=== PATIENT | female | born 1945 | race Caucasian/White ===

== ENCOUNTER 2018-07-31 18:03 | Emergency (ER) | payer MEDICARE, BC ==
[2018-07-31 18:20] VITALS: RESP 18
--- NOTE | 2018-07-31 19:22 | ED ---
General Adult HPI - General Chief complaint: Recheck/Abnormal Lab/Rx Stated complaint: FLANK PAIN, R/O PE Time Seen by Provider: 07/31/18 18:08 Source: patient, EMS, RN notes reviewed, old records reviewed Mode of arrival: EMS Limitations: no limitations - History of Present Illness Initial comments: This is a 73-year-old female the ER today. Patient does say for evaluation regarding possible PE. Patient states flank pain or shortness of breath. She has history of DVT and PE, history of multiple bariatric surgery. Patient is recent travel history no recent sick contacts no recent surgeries. Patient's not currently on any anticoagulation. Patient is accepted for evaluation regarding possibility of PE. Patient currently denying chest pain or shortness of breath did have flank pain left-sided flank pain. Patient states pain right now is currently controlled she has no complaints - Related Data Home Medications Medication Instructions Recorded Confirmed Calcium Carbonate [Calcium] 1,800 mg PO DAILY 05/13/16 07/31/18 Cholecalciferol [Vitamin D3] 5,000 unit PO DAILY 05/13/16 07/31/18 Loratadine-Pseudoeph 10-240 mg 1 tab PO DAILY 05/13/16 07/31/18 [Claritin-D 24 Hour] Montelukast [Singulair] 10 mg PO DAILY 05/13/16 07/31/18 Multivitamins, Thera [Multivitamin 2 tab PO DAILY 05/13/16 07/31/18 (formulary)] Estrogens, Conjugated [Premarin] 0.3 mg PO DAILY 07/31/18 07/31/18 Allergies Allergy/AdvReac Type Severity Reaction Status Date / Time diphenhydramine AdvReac ANXIETY Verified 07/31/18 18:27 [From Benadryl] Review of Systems ROS Statement: Those systems with pertinent positive or pertinent negative responses have been documented in the HPI. ROS Other: All systems not noted in ROS Statement are negative. Past Medical History Past Medical History: Deep Vein Thrombosis (DVT), Pulmonary Embolus (PE) Additional Past Medical History / Comment(s): cataracts bilaterally, R thumb fx as a child. History of Any Multi-Drug Resistant Organisms: None Reported Past Surgical History: Bariatric Surgery, Breast Surgery, Cholecystectomy, Heart Catheterization, Hysterectomy Additional Past Surgical History / Comment(s): 2008 normal heart cath, reconstructive maxilla bone graft from R iliac crest and 11 dental implants, gastric stapling, bilateral breast reduction, 2012 colonoscopy-normal. Past Anesthesia/Blood Transfusion Reactions: Motion Sickness Additional Past Anesthesia/Blood Transfusion Reaction / Comment(s): Pt has severe motion sickness. Past Psychological History: No Psychological Hx Reported Smoking Status: Former smoker Past Alcohol Use History: None Reported Past Drug Use History: None Reported - Past Family History Father Family Medical History: Diabetes Mellitus Mother Family Medical History: Diabetes Mellitus Sister(s) Family Medical History: Diabetes Mellitus Brother(s) Family Medical History: Diabetes Mellitus General Exam Limitations: no limitations General appearance: alert, in no apparent distress Head exam: Present: atraumatic, normocephalic, normal inspection Eye exam: Present: normal appearance, PERRL, EOMI. Absent: scleral icterus, conjunctival injection, periorbital swelling ENT exam: Present: normal exam, mucous membranes moist Neck exam: Present: normal inspection. Absent: tenderness, meningismus, lymphadenopathy Respiratory exam: Present: normal lung sounds bilaterally. Absent: respiratory distress, wheezes, rales, rhonchi, stridor Cardiovascular Exam: Present: regular rate, normal rhythm, normal heart sounds. Absent: systolic murmur, diastolic murmur, rubs, gallop, clicks GI/Abdominal exam: Present: soft, normal bowel sounds. Absent: distended, tenderness, guarding, rebound, rigid Extremities exam: Present: normal inspection, full ROM, normal capillary refill. Absent: tenderness, pedal edema, joint swelling, calf tenderness Back exam: Present: normal inspection Neurological exam: Present: alert, oriented X3, CN II-XII intact Psychiatric exam: Present: normal affect, normal mood Skin exam: Present: warm, dry, intact, normal color. Absent: rash Course Vital Signs 07/31/18 07/31/18 07/31/18 18:10 20:27 22:43 Temperature 97.1 F L 98.6 F Pulse Rate 75 77 77 Respiratory 18 18 18 Rate Blood Pressure 125/59 125/64 140/63 O2 Sat by Pulse 99 98 97 Oximetry - Reevaluation(s) Reevaluation #1: 07/31/18 20:29 Medical record transfer paperwork is reviewed EKG Findings - EKG Comments: EKG Findings:: EKG shows sinus rhythm rate of 69, MA 156, QRS 86, QTc 437 Medical Decision Making - Medical Decision Making 73 female the ER for evaluation of possibility of PE, ultrasound and CT are obtained which show no PE no DVT - Lab Data Result diagrams: 07/31/18 20:22 07/31/18 20:22 Lab Results 07/31/18 07/31/18 07/31/18 Range/Units 20:22 20:22 20:22 WBC 7.1 (3.8-10.6) k/uL RBC 4.65 (3.80-5.40) m/uL Hgb 12.9 (11.4-16.0) gm/dL Hct 40.9 (34.0-46.0) % MCV 87.8 (80.0-100.0) fL MCH 27.7 (25.0-35.0) pg MCHC 31.6 (31.0-37.0) g/dL RDW 15.2 (11.5-15.5) % Plt Count 190 (150-450) k/uL Neutrophils % 73 % Lymphocytes % 20 % Monocytes % 5 % Eosinophils % 1 % Basophils % 0 % Neutrophils # 5.2 (1.3-7.7) k/uL Lymphocytes # 1.4 (1.0-4.8) k/uL Monocytes # 0.3 (0-1.0) k/uL Eosinophils # 0.1 (0-0.7) k/uL Basophils # 0.0 (0-0.2) k/uL Hypochromasia Slight PT (9.0-12.0) sec INR (<1.2) APTT (22.0-30.0) sec D-Dimer (<0.60) mg/L FEU Sodium 137 (137-145) mmol/L Potassium 3.9 (3.5-5.1) mmol/L Chloride 104 (98-107) mmol/L Carbon Dioxide 28 (22-30) mmol/L Anion Gap 5 mmol/L BUN 16 (7-17) mg/dL Creatinine 0.53 (0.52-1.04) mg/dL Est GFR (CKD-EPI)AfAm >90 (>60 ml/min/1.73 sqM) Est GFR (CKD-EPI)NonAf >90 (>60 ml/min/1.73 sqM) Glucose 95 (74-99) mg/dL Calcium 8.3 L (8.4-10.2) mg/dL Phosphorus 5.1 H (2.5-4.5) mg/dL Magnesium 1.9 (1.6-2.3) mg/dL Total Bilirubin 0.9 (0.2-1.3) mg/dL AST 39 H (14-36) U/L ALT 49 (9-52) U/L Alkaline Phosphatase 155 H (38-126) U/L Total Creatine Kinase <20 L (30-135) U/L CK-MB (CK-2) 0.6 (0.0-2.4) ng/mL CK-MB (CK-2) Rel Index Troponin I <0.012 (0.000-0.034) ng/mL Total Protein 6.1 L (6.3-8.2) g/dL Albumin 3.4 L (3.5-5.0) g/dL 07/31/18 Range/Units 20:22 WBC (3.8-10.6) k/uL RBC (3.80-5.40) m/uL Hgb (11.4-16.0) gm/dL Hct (34.0-46.0) % MCV (80.0-100.0) fL MCH (25.0-35.0) pg MCHC (31.0-37.0) g/dL RDW (11.5-15.5) % Plt Count (150-450) k/uL Neutrophils % % Lymphocytes % % Monocytes % % Eosinophils % % Basophils % % Neutrophils # (1.3-7.7) k/uL Lymphocytes # (1.0-4.8) k/uL Monocytes # (0-1.0) k/uL Eosinophils # (0-0.7) k/uL Basophils # (0-0.2) k/uL Hypochromasia PT 9.9 (9.0-12.0) sec INR 1.0 (<1.2) APTT 25.0 (22.0-30.0) sec D-Dimer 1.84 H (<0.60) mg/L FEU Sodium (137-145) mmol/L Potassium (3.5-5.1) mmol/L Chloride (98-107) mmol/L Carbon Dioxide (22-30) mmol/L Anion Gap mmol/L BUN (7-17) mg/dL Creatinine (0.52-1.04) mg/dL Est GFR (CKD-EPI)AfAm (>60 ml/min/1.73 sqM) Est GFR (CKD-EPI)NonAf (>60 ml/min/1.73 sqM) Glucose (74-99) mg/dL Calcium (8.4-10.2) mg/dL Phosphorus (2.5-4.5) mg/dL Magnesium (1.6-2.3) mg/dL Total Bilirubin (0.2-1.3) mg/dL AST (14-36) U/L ALT (9-52) U/L Alkaline Phosphatase (38-126) U/L Total Creatine Kinase (30-135) U/L CK-MB (CK-2) (0.0-2.4) ng/mL CK-MB (CK-2) Rel Index Troponin I (0.000-0.034) ng/mL Total Protein (6.3-8.2) g/dL Albumin (3.5-5.0) g/dL Disposition Clinical Impression: Flank pain Disposition: HOME SELF-CARE Condition: Good Instructions: Flank Pain (ED) Is patient prescribed a controlled substance at d/c from ED?: No Referrals: Art Gusman MD [Primary Care Provider] - 1-2 days
[2018-07-31] MEDS ORDERED: SODIUM CHLORIDE 0.9% 1,000 ML IV STA ×3 (19:59→22:05)
[2018-07-31] MEDS ORDERED: MORPHINE SULFATE 4 MG/ML SYRINGE IV STA (19:59)
[2018-07-31 20:28] VITALS: PULSE 77
[2018-07-31 20:45] LABS: Basophils % (A) 0 %; Eosinophils # (A) 0.1 k/uL (0-0.7); Eosinophils % (A) 1 %; HCT 40.9 % (34.0-46.0); HGB 12.9 gm/dL (11.4-16.0); Hypochromasia Slight; Lymphocytes # (A) 1.4 k/uL (1.0-4.8); Lymphocytes % (A) 20 %; MCH 27.7 pg (25.0-35.0); MCHC 31.6 g/dL (31.0-37.0); MCV 87.8 fL (80.0-100.0); Mean Platelet Volume 6.9; Monocytes # (A) 0.3 k/uL (0-1.0); Monocytes % (A) 5 %; Neutrophils # (A) 5.2 k/uL (1.3-7.7); Neutrophils % (A) 73 %; Platelet Count 190 k/uL (150-450); RBC 4.65 m/uL (3.80-5.40); RDW 15.2 % (11.5-15.5); WBC 7.1 k/uL (3.8-10.6)
[2018-07-31 20:57] LABS: ALT 49 U/L (9-52); AST 39 U/L (14-36); Albumin 3.4 g/dL (3.5-5.0); Alkaline Phosphatase 155 U/L (38-126); Anion Gap 5 mmol/L; Blood Urea Nitrogen 16 mg/dL (7-17); Calcium 8.3 mg/dL (8.4-10.2); Carbon Dioxide 28 mmol/L (22-30); Chloride 104 mmol/L (98-107); Glucose 95 mg/dL (74-99); Magnesium 1.9 mg/dL (1.6-2.3); Phosphorus 5.1 mg/dL (2.5-4.5); Potassium 3.9 mmol/L (3.5-5.1); Sodium 137 mmol/L (137-145); Total Bilirubin 0.9 mg/dL (0.2-1.3); Total Protein 6.1 g/dL (6.3-8.2)
[2018-07-31 20:59] LABS: Prothrombin Time 9.9 sec (9.0-12.0)
[2018-07-31 21:00] LABS: Creatine Kinase <20 U/L (30-135)
[2018-07-31 21:12] LABS: Creatine Kinase MB 0.6 ng/mL (0.0-2.4); Troponin I <0.012 ng/mL (0.000-0.034)
[2018-07-31 21:36] LABS: D-Dimer 1.84 mg/L FEU (<0.60)
--- NOTE | 2018-07-31 21:48 | US ---
EXAMINATION TYPE: US venous doppler duplex LE DATE OF EXAM: 07/31/2018 9:23 PM COMPARISON: CLINICAL HISTORY: Pain. PE work up. Hx of DVT in right popliteal x 2 years ago. Not on blood thinne rs. No leg pain. No swelling. No redness. SIDE PERFORMED: Bilateral TECHNIQUE: The lower extremity deep venous system is examined utilizing real time linear array sonog rex with graded compression, doppler sonography and color-flow sonography. VESSELS IMAGED: External Iliac Vein (EIV) Common Femoral Vein Deep Femoral Vein Greater Saphenous Vein * Femoral Vein Popliteal Vein Small Saphenous Vein * Proximal Calf Veins (* superficial vessels) Right Leg: Negative for DVT Left Leg: Negative for DVT IMPRESSION: 1. Lower extremity ultrasound negative for deep venous thrombosis.
[2018-07-31] MEDS ORDERED: ONDANSETRON 4 MG/2 ML VIAL IVP STA (22:05)
--- NOTE | 2018-07-31 22:11 | CT ---
EXAMINATION TYPE: CT angio chest DATE OF EXAM: 07/31/2018 10:05 PM COMPARISON: 05/12/2016 HISTORY: R/O PE, upper back and bilateral flank pain CT DLP: 319.60 mGycm Automated exposure control for dose reduction was used. CONTRAST: CTA scan of the thorax is performed with IV Contrast, patient injected with 100 mL of Isovue 370, pul monary embolism protocol. There are 3-D post processed images.. FINDINGS: The lungs are clear of consolidation. There is no pleural effusion. There is subsegmental atelectasis at the lung bases. Thoracic aorta is intact. There is no evidence of aneurysm or dissection. Heart s ize is normal. There is no pericardial effusion. There is normal contrast opacification of the pulmon billie arteries. I see no filling defect. There is no mediastinal adenopathy. There are no hilar masses. The bony thorax is intact. There is minor spurring in the thoracic spine. There are surgical clips f rom gastric bypass. IMPRESSION: NO EVIDENCE OF PULMONARY EMBOLISM. MILD SUBSEGMENTAL ATELECTASIS AT THE LUNG BASES.
--- NOTE | 2018-07-31 22:25 | CT ---
EXAMINATION TYPE: CT abdomen pelvis w con DATE OF EXAM: 07/31/2018 COMPARISON: None HISTORY: upper back and bilateral flank pain CT DLP: 1395.10 mGycm Automated exposure control for dose reduction was used. TECHNIQUE: Helical acquisition of images was performed from the lung bases through the pelvis. CONTRAST: Performed without Oral Contrast and with IV Contrast, patient injected with 100 mL of Isovue 370. FINDINGS: There is subsegmental atelectasis at the posterior lung bases. There is no pleural effusion. Heart si ze is normal. There is 2 cm hypodensity in the left lobe of the liver. This could be a cyst. Liver otherwise appear s normal. Spleen appears normal. There are surgical clips from bariatric surgery. There is no evidenc e of pancreatic mass. Gallbladder is absent. There are multiple jocelin on the anterior abdominal wall. There is no adrenal mass. Kidneys show satisfactory contrast opacification. There is no hydronephrosi s. There is no retroperitoneal adenopathy. Abdominal aorta is atheromatous. Bladder distends smoothly . There is no free fluid in the pelvis. Appendix appears normal. I see no intestinal wall thickening. There are no dilated loops. There is no evidence of a bowel obstruction. There is ventral hernia in the mid abdomen that contains omental fat. There is no ascites. There is no free air. There is no evidence of inguinal hernia or adenopathy. The re is no mesenteric adenopathy or edema. Lumbar spine is intact. I see no bony destructive process. IMPRESSION: 2 CM HYPODENSE LESION IN THE ANTERIOR LIVER IS STABLE COMPARED TO 05/12/2016 CT SCAN AND CONSISTENT WI TH BENIGN ETIOLOGY. PREVIOUS BARIATRIC SURGERY. VENTRAL HERNIA CONTAINS FAT. NO SIGN OF ACUTE ABDOMEN AND PELVIS.
[2018-07-31 22:47] VITALS: BP 140/63; TEMP 98.6
== END 2018-07-31 23:33 | disposition home or self-care (01) ==
LOC: EC 18:03
DX: R10.9 Unspecified abdominal pain (principal); R06.02 Shortness of breath; Z86.711 Personal history of pulmonary embolism; Z98.84 Bariatric surgery status; Z90.49 Acquired absence of other specified parts of digestive tract; Z95.818 Presence of other cardiac implants and grafts; Z90.710 Acquired absence of both cervix and uterus; Z87.891 Personal history of nicotine dependence; Z79.890 Hormone replacement therapy; Z88.8 Allergy status to other drugs, medicaments and biological substances
CPT/HCPCS: 36415; 93005; 85379; 80053; 82550; 82553; 83735; 84100; 84484; 85025; 85610; 85730; 93970; 71275; 74177; 99285; 96374; 96375; 96361 ×3; J2270; J2405; Q9967

== ENCOUNTER → 2019-06-20 | Day surgery (SDC) | payer MEDICARE ==
[2019-06-15 15:44] VITALS: BMI 39.0
[~2019-06-20] MED LIST: BENZOCAINE SPRAY 1 CAN MUCOUS MEM ONE; MIDAZOLAM PF (FBP) 2 MG/2 ML VIAL IVP ONE; SODIUM CHLORIDE 0.9% 1,000 ML IV ONE; fentaNYL (PF) 50 MCG/ML 2 ML AMP IVP ONE; fentaNYL (PF) 50 MCG/ML 2 ML AMP ONE
[2019-06-20 07:03] VITALS: RESP 18; TEMP 97.7
--- NOTE | 2019-06-20 08:39 | ECHOT ---
TRANSESOPHAGEAL ECHOCARDIOGRAM DATE OF SERVICE: June 20, 2019 PERFORMING PHYSICIAN: Alexandro Rodriguez MD, assistant general manager. PROCEDURE PERFORMED: Transesophageal echocardiogram. INDICATION: Aortic insufficiency. COMPLICATION: None. LEVEL OF SEDATION: Moderate with sedation length of about 10 minutes. PROCEDURE DESCRIPTION: After obtaining an informed consent, explaining the procedure, benefits, risks, complications and alternatives, the patient was brought to the transesophageal echocardiogram suite. A pulse oximetry and heart rate monitors were attached to the patient prior to the procedure. The patient's throat was sprayed using lidocaine locally. Following that, the patient was turned into left lateral position. A bite guard was placed and the patient was then sedated with the above doses of Versed and fentanyl in divided doses. Following that, the transesophageal echocardiogram probe was advanced through the bite guard into the mid esophagus where 2-D echocardiogram images as well as color Doppler images of various cardiac structures were obtained. We evaluated the interatrial septum using 2-D echocardiogram, color Doppler, and contrast study. The procedure was completed. There were no complications. FINDINGS: Left ventricular dimension and systolic function appeared to be within normal limits with EF of 50% to 55%. The right ventricle appeared to be of normal size and function. The left atrium appeared to be mildly dilated. The interatrial septum appeared to be intact. Aortic valve is trileaflet valve without stenosis with moderate insufficiency. The mitral valve seems to be thickened with moderate MR. Normal tricuspid valve and pulmonic valve. CONCLUSION: 1. Normal left ventricular dimension and systolic function. 2. Normal right ventricular dimension and systolic function. 3. Mild biatrial enlargement. 4. Normal left atrial appendage. 5. Intact interatrial septum. 6. Trileaflet aortic valve without stenosis with moderate insufficiency. 7. Thickened mitral valve with moderate mitral regurgitation. 8. Normal tricuspid valve and pulmonic valve. MMODL / IJN: [id number] /
[2019-06-20 10:21] VITALS: BP 106/54; PULSE 72
== END ==
LOC: CATHCVL 06:07
PROVIDERS: ATTEND Internal Medicine Interventional Cardiology
DX: I08.0 Rheumatic disorders of both mitral and aortic valves (principal); E66.9 Obesity, unspecified; Z86.711 Personal history of pulmonary embolism; Z79.899 Other long term (current) drug therapy; Z79.890 Hormone replacement therapy; Z88.8 Allergy status to other drugs, medicaments and biological substances; Z68.41 Body mass index [BMI] 40.0-44.9, adult; Z82.49 Family history of ischemic heart disease and other diseases of the circulatory system; Z72.0 Tobacco use
CPT/HCPCS: 93312; 93320; 93325; J3010; J2250